=== PATIENT | male | born 1995 | race Caucasian/White ===

== ENCOUNTER 2021-06-21 18:21 | Emergency (ER) | payer MEDICAID, OTHER ==
[~2021-06-21] VITALS: Ht 172.7 cm; Wt 91.0 kg
[2021-06-21] MEDS ORDERED: BACITRACIN ZINC OINT UDPKT TOP ONE (22:30)
[2021-06-21] MEDS ORDERED: LIDOCAINE HCL/PF 1% 10 MG/ML 5ML VIAL INFIL ONE (22:30)
[2021-06-21] MEDS ORDERED: TETANUS, DIPHTHERIA, PERTUSSIS VAC/PF 0.5ML (>10YR OLD) IM ONE (22:30)
[2021-06-21] MEDS ORDERED: LIDOCAINE HCL 1% 20ML VIAL (Pyxis) INJ INFIL NR (22:31)
[2021-06-21] MEDS ORDERED: BO1 TP (23:45)
[2021-06-21] MEDS ORDERED: IBUP-2029 MT (23:45)
[2021-06-22 00:41] VITALS: BP 119/74
== END 2021-06-22 00:59 | disposition home or self-care (01) ==
LOC: ER 18:21
DX: S81.011A Laceration without foreign body, right knee, initial encounter (principal); W01.0XXA Fall on same level from slipping, tripping and stumbling without subsequent striking against object, initial encounter; Y93.K9 Activity, other involving animal care; Y92.89 Other specified places as the place of occurrence of the external cause
CPT/HCPCS: 12002; 73562; 90471; 90715; 99283; J3490

== ENCOUNTER 2021-07-07 21:09 | Emergency (ER) | payer MEDICAID ==
[~2021-07-07] VITALS: Ht 175.3 cm; Wt 91.0 kg
[~2021-07-07 21:09] MED LIST: BO1 TP; IBUP-2029 MT
[2021-07-07 21:28] VITALS: BP 133/104
== END 2021-07-08 00:57 | disposition left against medical advice (07) ==
LOC: ER 21:09
DX: Z53.21 Procedure and treatment not carried out due to patient leaving prior to being seen by health care provider (principal)